=== PATIENT | male | born 1970 | race Caucasian/White ===

== ENCOUNTER 2021-03-06 14:59 | Inpatient (IN) | payer OTHER ==
[2021-03-06 17:43] VITALS: BMI 30.1
[2021-03-06] MEDS ORDERED: MENTHOL/PHENOL 1 EACH UD MM PRN (17:47)
[2021-03-06] MEDS ORDERED: ONDANSETRON *ODT* 4 MG TABLET SL PRN (17:47)
[2021-03-06] MEDS ORDERED: MELATONIN 5 MG TABLETS PO PRN (17:47)
[2021-03-06] MEDS ORDERED: BISMUTH SUBSALICYLATE 524 MG/30 ML PO PRN (17:47)
[2021-03-06] MEDS ORDERED: MAGNESIUM HYDROX 2400MG/30ML ORAL SUSPENSION 30 ML CUP PO PRN (17:47)
[2021-03-06] MEDS ORDERED: chlordiazePOXIDE HCL 25 MG CAPSULE PO ONE (17:47)
[2021-03-06] MEDS ORDERED: ACETAMINOPHEN 325 MG TABLET (FP) PO PRN ×2 (17:47)
[2021-03-06] MEDS ORDERED: MAG HYDROX/AL HYDROX/SIMETH 30 ML UNIT-DOSE CUP PO PRN (17:47)
[2021-03-06] MEDS ORDERED: MAGNESIUM CITRATE 300 ML BOTTLE PO PRN (17:47)
[2021-03-06] MEDS ORDERED: chlordiazePOXIDE HCL 25 MG CAPSULE ONE ×2 (18:14→19:36)
[2021-03-06] MEDS: chlordiazePOXIDE HCL 25 MG CAPSULE PO PRN (19:39)
[2021-03-06] MEDS ORDERED: SUBOXONE SL SCH (22:00)
[2021-03-06] MEDS ORDERED: BUPRENORPHINE/NALOXONE 8 MG/2 MG FILM PACKET ONE (22:48)
[2021-03-06] MEDS: THIAMINE HCL 100 MG TABLET (FP) PO SCH (22:54)
[2021-03-06] MEDS: BUPRENORPHINE/NALOXONE 8 MG/2 MG FILM (DETOX) SL SCH (22:58)
[2021-03-06] MEDS: chlordiazePOXIDE HCL 25 MG CAPSULE PO SCH (22:59)
[2021-03-07] MEDS: chlordiazePOXIDE HCL 25 MG CAPSULE PO SCH ×4 (05:18→22:49)
[2021-03-07] MEDS ORDERED: BUPRENORPHINE/NALOXONE 8 MG/2 MG FILM PACKET ONE (05:27)
[2021-03-07] MEDS ORDERED: BUPRENORPHINE/NALOXONE 8 MG/2 MG FILM (DETOX) SL SCH (07:15)
[2021-03-07] MEDS: BUPRENORPHINE/NALOXONE 8 MG/2 MG FILM (DETOX) SL SCH (07:38)
[2021-03-07] MEDS: BUPRENORPHINE/NALOXONE 8 MG/2 MG FILM PACKET SL SCH ×3 (07:52→21:44)
[2021-03-07] MEDS: PRENATAL VITAMINS W/ FOLIC ACID TABLET (FP) PO SCH (10:05)
[2021-03-07] MEDS: METHOCARBAMOL 500 MG TABLET PO PRN ×2 (11:07→20:04)
[2021-03-07 11:54] LABS: HEMATOCRIT 34.4 % (35.4-49); HEMOGLOBIN 11.5 GM/dL (11.7-16.9); MCH 28.7 pg (25.7-33.7); MCHC 33.5 g/dl (32.0-35.9); MEAN CELL VOLUME 85.7 fl (80-96); MEAN PLT VOLUME 7.4 fl (7.5-11.1); PLATELET COUNT 208 10^3/uL (134-434); RBC 4.01 M/mm3 (4.00-5.60); RDW 14.9 % (11.9-15.9); WHITE BLOOD COUNT 4.9 K/mm3 (4.0-10.0)
[2021-03-07 12:30] LABS: CALCIUM 8.5 mg/dL (8.5-10.1)
[2021-03-07 12:31] LABS: ALBUMIN 3.3 g/dl (3.4-5.0); BLOOD UREA NITROGEN 4.9 mg/dL (7-18)
[2021-03-07 12:34] LABS: CREATININE 0.6 mg/dL (0.55-1.3)
[2021-03-07 12:35] LABS: BILIRUBIN,TOTAL 0.6 mg/dL (0.2-1)
[2021-03-07 12:36] LABS: TOT PROT 5.9 g/dl (6.4-8.2)
[2021-03-07] MEDS: THIAMINE HCL 100 MG TABLET (FP) PO SCH (21:45)
[2021-03-08] MEDS: chlordiazePOXIDE HCL 25 MG CAPSULE PO SCH ×4 (05:06→22:52)
[2021-03-08] MEDS: BUPRENORPHINE/NALOXONE 8 MG/2 MG FILM PACKET SL SCH ×3 (05:24→22:52)
[2021-03-08] MEDS: METHOCARBAMOL 500 MG TABLET PO PRN ×3 (07:06→22:52)
[2021-03-08] MEDS: IBUPROFEN 400 MG TABLET (FP) PO PRN ×2 (07:06→18:00)
[2021-03-08] MEDS: PRENATAL VITAMINS W/ FOLIC ACID TABLET (FP) PO SCH (11:12)
[2021-03-08] MEDS: chlordiazePOXIDE HCL 25 MG CAPSULE PO PRN (13:25)
[2021-03-08] MEDS: THIAMINE HCL 100 MG TABLET (FP) PO SCH (22:52)
[2021-03-09] MEDS ORDERED: chlordiazePOXIDE HCL 10 MG CAPSULE PO PRN
[2021-03-09] MEDS: chlordiazePOXIDE HCL 10 MG CAPSULE PO SCH ×4 (06:41→23:00)
[2021-03-09] MEDS: BUPRENORPHINE/NALOXONE 8 MG/2 MG FILM PACKET SL SCH ×3 (06:42→21:49)
[2021-03-09] MEDS: PRENATAL VITAMINS W/ FOLIC ACID TABLET (FP) PO SCH (10:58)
[2021-03-09] MEDS: IBUPROFEN 400 MG TABLET (FP) PO PRN (10:59)
[2021-03-09] MEDS: METHOCARBAMOL 500 MG TABLET PO PRN ×2 (11:00→18:15)
[2021-03-09] MEDS ORDERED: hydrOXYzine PAMOATE 50 MG CAPSULE (FP) PO PRN (12:27)
[2021-03-09] MEDS: GABAPENTIN 300 MG CAPSULE PO SCH ×2 (14:38→21:49)
[2021-03-09] MEDS: THIAMINE HCL 100 MG TABLET (FP) PO SCH (21:49)
[2021-03-09] MEDS: LITHIUM CARBONATE 300 MG CAPSULE PO SCH (21:49)
[2021-03-10] MEDS: BUPRENORPHINE/NALOXONE 8 MG/2 MG FILM PACKET SL SCH ×3 (06:28→21:32)
[2021-03-10] MEDS: GABAPENTIN 300 MG CAPSULE PO SCH ×3 (06:28→21:31)
[2021-03-10] MEDS: chlordiazePOXIDE HCL 10 MG CAPSULE PO SCH ×2 (06:29→18:04)
[2021-03-10] MEDS: LITHIUM CARBONATE 300 MG CAPSULE PO SCH ×2 (09:49→21:32)
[2021-03-10] MEDS: METHOCARBAMOL 500 MG TABLET PO PRN (09:49)
[2021-03-10] MEDS: PRENATAL VITAMINS W/ FOLIC ACID TABLET (FP) PO SCH (09:49)
[2021-03-10] MEDS: IBUPROFEN 400 MG TABLET (FP) PO PRN (14:25)
[2021-03-10] MEDS: THIAMINE HCL 100 MG TABLET (FP) PO SCH (21:32)
[2021-03-11] MEDS ORDERED: chlordiazePOXIDE HCL 10 MG CAPSULE PO ONE (05:00)
[2021-03-11] MEDS: GABAPENTIN 300 MG CAPSULE PO SCH (06:11)
[2021-03-11] MEDS: BUPRENORPHINE/NALOXONE 8 MG/2 MG FILM PACKET SL SCH (06:12)
[2021-03-11] MEDS: METHOCARBAMOL 500 MG TABLET PO PRN (06:40)
[2021-03-11 09:37] VITALS: BP 142/91; PULSE 99; TEMP 97
[2021-03-11] MEDS: LITHIUM CARBONATE 300 MG CAPSULE PO SCH (10:40)
[2021-03-11] MEDS: PRENATAL VITAMINS W/ FOLIC ACID TABLET (FP) PO SCH (10:40)
== END 2021-03-11 10:42 | disposition home or self-care (01) | DRG 896 ==
LOC: YASAS 14:59 → Y6N 20:05
PROVIDERS: ADMIT Allergy & Immunology; ATTEND Allergy & Immunology
PROC: HZ2ZZZZ Detoxification Services for Substance Abuse Treatment (ICD-10-PCS; principal; 2021-03-06)
DX: F10.230 Alcohol dependence with withdrawal, uncomplicated (principal); U07.1 COVID-19; F11.20 Opioid dependence, uncomplicated; F31.81 Bipolar II disorder; E66.9 Obesity, unspecified; Z68.30 Body mass index [BMI] 30.0-30.9, adult; R73.9 Hyperglycemia, unspecified; Z86.19 Personal history of other infectious and parasitic diseases; Z86.69 Personal history of other diseases of the nervous system and sense organs; Z51.81 Encounter for therapeutic drug level monitoring; Z79.899 Other long term (current) drug therapy; Z56.0 Unemployment, unspecified
CPT/HCPCS: 36415; 80053; 80178; 82962; 85027; 86780; 93005; 93010; C9803; Q0162; U0003; U0005